=== PATIENT | female | born 1940 | race Caucasian/White ===

== ENCOUNTER 2021-09-11 09:33 | Outpatient (CLI) | payer MEDICARE, BC | END 2021-09-11 09:34 | disposition home or self-care (01) | LOC: CSHWCC 09:33 | PROVIDERS: ATTEND Nurse Practitioner Family | DX: K94.09 Other complications of colostomy (principal); G45.9 Transient cerebral ischemic attack, unspecified; N18.9 Chronic kidney disease, unspecified; Z85.43 Personal history of malignant neoplasm of ovary; Z93.3 Colostomy status | CPT/HCPCS: 97139; G0463; 99202 ==

== ENCOUNTER 2021-09-25 08:58 | Outpatient (CLI) | payer MEDICARE, BC | END 2021-09-25 08:59 | disposition home or self-care (01) | LOC: CSHWCC 08:58 | PROVIDERS: ATTEND Nurse Practitioner Family | DX: K94.09 Other complications of colostomy (principal) | CPT/HCPCS: 97139; G0463; 99212 ==

== ENCOUNTER 2021-10-02 10:32 | Outpatient (CLI) | payer MEDICARE, BC | END 2021-10-02 10:33 | disposition home or self-care (01) | LOC: CSHWCC 10:32 | PROVIDERS: ATTEND Nurse Practitioner Family | DX: K94.09 Other complications of colostomy (principal) ==